=== PATIENT | male | born 1940 | race Caucasian/White ===

== ENCOUNTER → 2018-12-16 11:20 | Outpatient (CLI) | payer MEDICARE, OTHER, SELFPAY ==
--- NOTE | 2018-12-16 | DI.MRI.S_ITS ---
PROCEDURE: MR LUMBAR SPINE WO CON INDICATIONS: Radiculopathy, lumbar region TECHNIQUE: Noncontrast sagittal T1 spin echo and T2 fast echo, sagittal STIR, axial T1 and T2 fast spin echo through the lumbar spine. In cases with scoliosis, additional coronal T2 fast spin echo may be performed. COMPARISON: None. FINDINGS: Image quality: Excellent. Alignment and Curvature: There is normal bony alignment. Bone Marrow: Reactive endplate change is noted adjacent to the L2-L3, L3-L4, L4-L5 at L5-S1 discs. No acute vertebral body compression fractures. Spinal Cord: Conus medullaris terminates at the T12-L1 disc level. Visualized cord demonstrates normal signal and size. Paraspinous Soft Tissues: No paravertebral masses. L1-L2: Loss of disc signal. Mild, diffuse disc bulge. Mild bilateral facet hypertrophy. No central stenosis. No neural foraminal narrowing. No neural compression. L2-L3: Loss of disc signal. Mild to moderate diffuse disc bulge. Mild facet and mild ligamentum flavum hypertrophy. Mild narrowing of the central canal. Mild bilateral neural foraminal narrowing. No neural compression. L3-L4: Loss of disc signal. Mild, diffuse disc bulge. Mild bilateral facet hypertrophy. Mild ligamentum flavum hypertrophy. Mild narrowing of the central canal. Mild bilateral neural foraminal narrowing. No neural compression. L4-L5: Loss of disc signal. Mild, diffuse disc bulge. Severe facet and ligamentum flavum hypertrophy. Severe narrowing of the central canal with slight compression of the nerve roots of the cauda equina. Moderate bilateral neural foraminal narrowing. L5-S1: Near complete loss of disc substance with partial ankylosis. Posterior osteophytosis. Mild bilateral facet hypertrophy. No central stenosis severe left subarticular neural foraminal narrowing with compression of the exiting left L5 nerve root. IMPRESSION: 1. Multilevel degenerative disc disease 2. Multilevel facet arthropathy. 3. Severe L4-L5 central canal narrowing. 4. Severe left L5-S1 and subarticular neural foraminal narrowing. Moderate bilateral L4-L5 neural foraminal narrowing. Mild bilateral L2-L3 and L3-L4 neural foraminal narrowing. 6. Slight compression of the nerve roots of the cauda equina at the level of the L4-L5 disc secondary to central canal narrowing. 6. Compression of the exiting left L5 nerve root secondary to neural foraminal narrowing. Dictated by: Aniya Singh MD, PhD on 12/16/2018 at 16:33 Approved by: Aniya Singh MD, PhD on 12/16/2018 at 16:42
== END ==
PROVIDERS: Family Provider Family Medicine; PCP Family Medicine; Visit Provider Family Medicine
DX: M51.16 Intervertebral disc disorders with radiculopathy, lumbar region (principal); M47.26 Other spondylosis with radiculopathy, lumbar region; M48.061 Spinal stenosis, lumbar region without neurogenic claudication
CPT/HCPCS: 72148

== ENCOUNTER 2019-04-14 08:35 | Day surgery (SDC) | payer MEDICARE, OTHER, SELFPAY ==
[2019-04-14] VITALS (9 sets, daily range): BP systolic 116–146; BP diastolic 63–76; PULSE 51–64; RESP 12–16; TEMP 36.1–36.7; O2SAT 93–97; BMI 27.1
--- NOTE | 2019-04-14 | PATH_ITS ---
[facility] Accession Number: [id number] . 01 Material submitted: . bladder - LEFT BLADDER WALL BIOPSY . 02 Diagnosis: Left Bladder Wall Biopsy: Atypical urothelial tissue; outside consultation pending ([facility]). Their interpretation will be reported as an addendum. [facility] 04/17/2019 1547 Local . 02 Electronically signed: . Marva Truong MD, Pathologist NPI- [id number] . 01 Gross description: . LEFT BLADDER WALL BIOPSY: Received in formalin are 3 fragment(s) of wagner, soft tissue measuring 0.1 x 0.1 x 0.1 cm to 0.3 x 0.2 x 0.2 cm submitted entirely in 1 cassette(s) /[facility] 04/14/20192043 Local . 02 Pathologist provided ICD-10: C67.9 . 02 CPT . 148367 Performed at: 01 [facility] [address] [facility], [place], [place] [id number] MD Sammy Mayers MD Phone: [phone] Performed at: 02 [facility] [address] [place], [place] [id number] MD Sinai Hurt MD Phone: [phone]
[2019-04-14] MEDS: ACETAMINOPHEN 325 MG TABLET 975 MG PO (09:07)
[2019-04-14] MEDS: LACTATED RINGERS 1,000 ML 42 ML IV (09:07)
--- NOTE | 2019-04-14 09:16 | PM.PREOP ---
Pre-operative Note Interval Note History & Physical reviewed/Exam performed by Physician: Yes Changes to H&P: No H&P completed within 30 days and has changed as indicated here:: History and physical examination on file.
[2019-04-14] MEDS: CEFAZOLIN 2 GM/100 ML FROZ.PIGGY IV (09:29)
--- NOTE | 2019-04-14 09:46 | SUR.OPER ---
Lithotomy on padded OR bed, head on pillow, arms secured on padded arm boards at <90 degrees abduction. Legs secured in padded yellow fins stirrups.
[2019-04-14] MEDS: BELLADONNA/OPIUM SUPPOSITORIES 1 EACH PR (09:49)
[2019-04-14] MEDS: mitoMYcin 20 MG in WATER FOR INJECTION 20 ML 240 ML INTRAVESIC (10:02)
--- NOTE | 2019-04-14 10:16 | PM.OP.1 ---
Operative Date/Time/Diagnoses Date of procedure: 04/14/19 Time of procedure: 10:17 Pre-op diagnosis: 1. Recurrent urothelial carcinoma left bladder wall. Post-op diagnosis: same Procedure & Clinicians Procedure: 1. Cystoscopy with bladder biopsy. 2. Transurethral resection of recurrent bladder tumor. 3. Installation mitomycin C (20 mg). Same procedure as scheduled: Yes Indications: 1. Recurrent urothelial carcinoma left bladder wall. Surgeon: Katherine Prieto Click Yes if Unassisted: Yes Anesthesia Type: General Operative Notes Findings: 1. Urethra normal. External sphincter coapted. Prostate 5 cm length with obstructing trilobar hyperplasia. Bladder had well-versed healed resection bed at right lateral wall. There was spreading papillary recurrence carcinoma extending from the left mid ureteric ridge extending laterally and superiorly and anteriorly to a point near the bladder neck. Closure Type: not applicable Specimen(s): other (Cold cup bladder biopsies left bladder wall.) Applied: catheter (Twenty Surinamese silicone Barnhart catheter) Estimated Blood Loss (mL): 0 Blood products transfused: none Tourniquet time (min): 0 Procedure in detail: The patient was positioned in supine and was administered general anesthesia. He was then repositioned in semi lithotomy and the lower abdomen genitalia and groin were prepped and draped in sterile fashion. The 25 Surinamese resectoscope was then advanced to the lower urinary tract under direct visualization with the findings as described above. The resectoscope was then fitted with the biopsy element and 3 national account representative samples were taken from the above-described left lateral wall spreading neoplasm. The biopsy element was then removed and was replaced with the resecting loop. Superficial cautery resection destruction of all visible recurrence neoplasm was conducted the biopsy sites were cautery treated for hemostasis. The bladder was left partially filled and the resectoscope was removed a 20 Surinamese silicone Barnhart catheter was then inserted the balloon was inflated to 10 cc and was then drained of its contents. A solution of 20 mg of mitomycin-C suspended in 20 cc of sterile water were then instilled in the bladder a catheter plug was fitted to the Barnhart for anticipated to our postoperative retention. The patient was then repositioned in supine was awakened, transferred to [facility], and transferred to the recovery area in stable condition. Complications: none Post-operative Condition: stable Disposition: PACU Plan for aftercare: 1. Retained mitomycin-C solution until [address]. [address] Barnhart catheter to gravity drainage at 12:00 p.m.. 3. Provide larger and leg bag with care and use instruction. 4. Instructed the patient and proper catheter removal at 7:00 a.m. on 04/17/2019. 5. Schedule follow-up visit in my office 3-4 weeks with PVR.
--- NOTE | 2019-04-14 12:28 | SUR.PHASEII ---
1200 late entry Catheter connected to straight drainage bag, drained chemo and urine to 400 ml line in the bag, urine dark red without clots. Encouraged him to drink to get urine to watermelon colored. Coffee given. Leg bag/jameson demo given. 1229 in the ER (passed out last night). Patient escorted to ER in a wheelchair by the volunteer. Pt very kind, oriented, skin warm and dry, denies pain, no further questions
== END 2019-04-14 12:29 | disposition home or self-care (01) ==
PROVIDERS: PCP Family Medicine; Visit Provider Specialist
PROC: 0TBB8ZZ Excision of Bladder, Via Natural or Artificial Opening Endoscopic (ICD-10-PCS; CPT 52235; principal; 2019-04-14 09:45)
DX: C67.9 Malignant neoplasm of bladder, unspecified (principal)
CPT/HCPCS: 52235; J0690; J1100; J2405; J2704; J3010; J9280

== ENCOUNTER → 2019-10-31 13:16 | Outpatient (CLI) | payer MEDICARE, OTHER, SELFPAY | PROVIDERS: PCP Family Medicine; Visit Provider Specialist | DX: N39.0 Urinary tract infection, site not specified (principal); N40.1 Benign prostatic hyperplasia with lower urinary tract symptoms; N13.8 Other obstructive and reflux uropathy; Z85.51 Personal history of malignant neoplasm of bladder | CPT/HCPCS: 52000; 81002; 87086; 99213 ==

== ENCOUNTER → 2020-08-21 14:11 | Outpatient (CLI) | payer MEDICARE, OTHER, SELFPAY ==
[2020-08-21 15:43] LABS: Prostate Specific Antigen 0.413 ng/mL (0.10-4.00)
== END ==
PROVIDERS: PCP Family Medicine; Referring Provider Specialist; Visit Provider Specialist
DX: N40.1 Benign prostatic hyperplasia with lower urinary tract symptoms (principal); N13.8 Other obstructive and reflux uropathy; Z85.51 Personal history of malignant neoplasm of bladder
CPT/HCPCS: 36415; 84153

== ENCOUNTER → 2020-11-07 12:33 | Outpatient (CLI) | payer MEDICARE, OTHER, SELFPAY ==
--- NOTE | 2020-11-07 12:34 | DI.MRI.S_ITS ---
PROCEDURE: MR HEAD/BRAIN WO CON INDICATIONS: chronic ELDRIDGE TECHNIQUE: Non-contrast axial T1 spin echo, axial T2 fast spin echo, sagittal and axial FLAIR, coronal T2 fast spin echo, axial gradient echo, axial diffusion and ADC through the brain. COMPARISON: None. FINDINGS: Image quality: Excellent. CSF spaces: Ventricles appear symmetric in size and shape. Basal cisterns are patent. No extra-axial fluid collections. Brain: No intracranial bleeds or mass effects. There is mild cerebral volume loss for age. There are mild periventricular and deep white matter chronic small vessel ischemic changes. Brainstem appears normal. Diffusion-weighted images show no acute ischemic insults. No chronic ischemic insults. Normal intravascular flow voids are present. Skull and face: Calvarial bone marrow is normal in signal. Orbits are normal. Sinuses: Sinuses and mastoids are clear. IMPRESSION: 1. Absence of flow void in the right transverse sinus which could be due to artifact, slow flow or thrombosis. Recommend MRI of the brain with contrast and MRV for further evaluation. 2. Mild, relatively smooth diffuse dural thickening. Recommend MRI of the brain with contrast for additional evaluation of the finding. Differential diagnosis is broad and includes cerebral venous thrombosis, hypertropic pachymeningitis infectious etiologies including bacterial meningitis, inflammatory etiology including IgG 4 related hypertrophic pachymeningitis and rheumatoid disease as well as changes of chronic hemodialysis 3. No abnormal intracranial mass or mass effect. 4. No intracranial hemorrhage. 5. Mild, diffuse cerebral volume loss. 6. Mild periventricular and subcortical white matter chronic microvascular ischemic change. Findings and recommendations discussed with Dr. Salbador Ballard on November 07, 2020 at 2:21 p.m. Dictated by: Aniya Singh MD, PhD on 11/07/2020 at 13:54 Approved by: Aniya Singh MD, PhD on 11/07/2020 at 14:32
--- NOTE | 2020-11-07 12:34 | DI.US.S_ITS ---
PROCEDURE: US CAROTID DOPPLER BI INDICATIONS: OCCULAR CHANGES TECHNIQUE: Color and pulse Doppler interrogation was performed of both carotid systems, with image documentation and velocity measurements. COMPARISON: [facility], MR, MR HEAD/BRAIN WO CON, 11/07/2020, 13:09. [facility], MR, MR ANGIO HEAD WO CON, 11/07/2020, 15:25. [facility], MR, MR HEAD/BRAIN W CON, 11/07/2020, 15:38. Outside Facility, RG, US CAROTID DOPPLER, 04/28/2017, 9:46. FINDINGS: Stenosis calculations are based on SRU (Society of Radiologists in Ultrasound) criteria. The flow velocities and the arterial waveforms are normal within both carotid arterial systems. Atherosclerotic plaque is seen on both sides, left worse than right. The estimated degree of internal carotid artery stenosis is less than 50%. Antegrade flow is confirmed within both vertebral arteries. IMPRESSION: No hemodynamically significant stenosis is seen. No significant change from the prior. Atherosclerotic plaque is noted bilaterally, left worse than right. Dictated by: Jesse Hawkins M.D. on 11/11/2020 at 15:43 Approved by: Jesse Hawkins M.D. on 11/11/2020 at 15:43
--- NOTE | 2020-11-07 14:46 | DI.MRI.S_ITS ---
PROCEDURE: MR ANGIO HEAD WO CON INDICATIONS: Concerns regarding cerebral venous thrombosis TECHNIQUE: Sagittal T1 spin echo through the brain. Coronal 2D ytty-tj-dnyixu MR venogram, with 3-dimensional jyyohgl-jqukjrozg-abprglxefi (MIP) reformats of the intracranial veins then performed. COMPARISON: None. FINDINGS: Image quality: Excellent. Veins: Sagittal, straight, transverse, and sigmoid sinuses all appear patent. 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 Brain: Limited images through the brain parenchyma show no intracranial bleeds or mass effects. IMPRESSION: No evidence of cerebral venous thrombosis. Dictated by: Aniya Singh MD, PhD on 11/07/2020 at 15:57 Approved by: Aniya Singh MD, PhD on 11/07/2020 at 16:01
--- NOTE | 2020-11-07 14:46 | DI.MRI.S_ITS ---
PROCEDURE: MR HEAD/BRAIN W CON INDICATIONS: Concern regarding cerebral venous thrombosis TECHNIQUE: Noncontrast sagittal and axial FLAIR, axial and coronal T2 fast spin echo, axial VIBE, axial gradient echo, axial diffusion and ADC through the brain. After the administration of contrast, axial and coronal VIBE with fat saturation through the brain. COMPARISON: [facility], MR, MR HEAD/BRAIN WO CON, 11/07/2020, 13:09. [facility], MR, MR ANGIO HEAD WO CON, 11/07/2020, 15:25. FINDINGS: Image quality: Excellent. CSF spaces: Ventricles are normal in size and shape. Basal cisterns are patent. No extra-axial fluid collections. Brain: No intracranial bleeds or mass effects. Zarate-white matter interface appears intact. No suspicious white matter lesions. There is diffuse dural thickening with mild, smooth dural enhancement. Diffusion weighted images show no acute ischemic insults. Brainstem appears normal. Normal intravascular flow voids are present. Dural sinuses demonstrate normal postcontrast enhancement. Skull and face: Calvarial marrow signal is normal. Orbits appear normal. Sinuses: Sinuses and mastoids are clear. IMPRESSION: 1. Mild, diffuse, smooth dural thickening and enhancement. Differential diagnosis includes idiopathic hypertrophic pachymeningitis, versus less likely infectious etiologies, inflammatory etiologies. 2. No abnormal intracranial mass. Area 3. Normal postcontrast enhancement of the dural sinuses. Dictated by: Aniya Singh MD, PhD on 11/07/2020 at 15:51 Approved by: Aniya Singh MD, PhD on 11/07/2020 at 15:57
== END ==
PROVIDERS: PCP Family Medicine; Referring Provider Family Medicine; Visit Provider Family Medicine
DX: R51.9 Headache, unspecified (principal); H53.8 Other visual disturbances; H91.93 Unspecified hearing loss, bilateral; G89.29 Other chronic pain; Z86.69 Personal history of other diseases of the nervous system and sense organs
CPT/HCPCS: 70544; 70551; 70552; 93880

== ENCOUNTER → 2020-12-09 09:03 | Outpatient (CLI) | payer MEDICARE, OTHER, SELFPAY ==
[2020-12-09 21:57] LABS: COVID19 - ORCAS (NP or Nasal) Negative (Negative)
== END ==
PROVIDERS: PCP Family Medicine; Visit Provider Family Medicine
DX: Z20.822 Contact with and (suspected) exposure to COVID-19 (principal)
CPT/HCPCS: C9803; U0003

== ENCOUNTER → 2020-12-17 13:06 | Outpatient (CLI) | payer MEDICARE, OTHER, SELFPAY ==
[2020-12-17 19:40] LABS: C-Reactive Protein Quant 0.6 mg/dL (<1.0)
[2020-12-17 19:45] LABS: Erythrocyte Sedimentation Rate 3 MM/HR (0-15)
[2020-12-17 19:46] LABS: Rheumatoid Factor < 8.6 IU/mL (<12.0)
[2020-12-19 22:00] LABS: SS A Ro Sjogrens Antibody < 0.2 AI (0.0-0.9); SS B La Sjogrens Antibody < 0.2 AI (0.0-0.9)
[2020-12-20 09:42] LABS: Angiotensin Converting Enzyme 34 U/L (14-82)
== END ==
PROVIDERS: PCP Family Medicine; Visit Provider Psychiatry & Neurology Neurology
DX: G96.9 Disorder of central nervous system, unspecified (principal); R51.0 Headache with orthostatic component, not elsewhere classified
CPT/HCPCS: 82164; 83516; 85651; 86140; 86225; 86235; 86430

== ENCOUNTER → 2020-12-23 07:56 | Outpatient (CLI) | payer MEDICARE, OTHER, SELFPAY ==
[2020-12-23 20:57] LABS: COVID19 - ORCAS (NP or Nasal) Negative (Negative)
== END ==
PROVIDERS: PCP Family Medicine; Visit Provider Family Medicine
DX: Z20.822 Contact with and (suspected) exposure to COVID-19 (principal)
CPT/HCPCS: U0003

== ENCOUNTER → 2021-05-28 09:13 | Outpatient (CLI) | payer MEDICARE, OTHER, SELFPAY ==
[2021-05-28 18:51] LABS: Alanine Aminotransferase 33 IU/L (<50); Albumin 3.9 g/dL (3.5-5.0); Albumin Globulin Ratio 1.5 (1.0-2.8); Alkaline Phosphatase 58 U/L (38-126); Aspartate Aminotransferase 36 IU/L (17-59); BUN Creatinine Ratio 16.3 (6-22); Bilirubin Total 0.8 mg/dL (0.2-1.3); Blood Urea Nitrogen 17 mg/dL (9-20); Calcium 8.9 mg/dL (8.4-10.2); Carbon Dioxide 30 mmol/L (22-32); Chloride 105 mmol/L (98-107); Cholesterol 132 mg/dL (140-199); Estimated Glomerular Filt Rate > 60.0 mL/min (>60); Globulin 2.6 g/dL (1.7-4.1); Glucose 115 mg/dL (80-110); HDL Cholesterol 49 mg/dL (40-60); HEMOLYSIS < 15 (0-50); LDL Cholesterol Calculated 66 mg/dL (<100); Potassium 4.3 mmol/L (3.4-5.1); Sodium 139 mmol/L (137-145); Total Protein 6.5 g/dL (6.3-8.2); Triglycerides 85 mg/dL (35-150)
== END ==
PROVIDERS: PCP Family Medicine; Visit Provider Family Medicine
DX: E78.2 Mixed hyperlipidemia (principal); I10 Essential (primary) hypertension
CPT/HCPCS: 80053; 80061

== ENCOUNTER → 2022-02-27 11:07 | Outpatient (CLI) | payer MEDICARE, OTHER, SELFPAY ==
[2022-02-27 19:57] LABS: Add Manual Diff / Slide Review NO; Basophils Absolute Auto 100 /uL (0-100); Basophils Percent Auto 0.9 % (0-2); Eosinophils Absolute Auto 400 /uL (0-450); Eosinophils Percent Auto 6.7 % (2-4); Hematocrit 47.2 % (41-53); Hemoglobin 16.1 g/dL (13.5-17.5); Lymphocytes Absolute Auto 1400 /uL (1100-4500); Lymphocytes Percent Auto 23.4 % (25-40); Mean Corpuscular HGB Conc 34.1 % (30-36); Mean Corpuscular Volume 90.9 fL (80-100); Monocytes Absolute Auto 500 /uL (0-900); Monocytes Percent Auto 8.1 % (3-14); Neutrophils Absolute Auto 3600 /uL (1500-7000); Neutrophils Percent Auto 60.9 % (50-75); Platelet Count 152 X10^3/uL (150-400); Red Cell Distribution Width 13.5 % (11.6-14.8); White Blood Cell Count 5.9 X10^3/uL (4.5-11.0)
[2022-02-27 20:01] LABS: BUN Creatinine Ratio 15.4 (6-22); Blood Urea Nitrogen 14 mg/dL (9-20); Carbon Dioxide 29 mmol/L (22-32); Chloride 104 mmol/L (98-107); Cholesterol 158 mg/dL (140-199); Estimated Glomerular Filt Rate > 60 mL/min (>60); Glucose 104 mg/dL (80-110); HDL Cholesterol 51 mg/dL (40-60); HEMOLYSIS < 15 (0-50); LDL Cholesterol Calculated 88 mg/dL (<100); Potassium 4.2 mmol/L (3.4-5.1); Sodium 141 mmol/L (137-145); Triglycerides 94 mg/dL (35-150)
[2022-02-27 20:16] LABS: Vitamin D 25 Hydroxy (D3) 41.5 ng/mL (30.0-100.0)
[2022-02-27 20:29] LABS: Prostate Specific Antigen 0.457 ng/mL (0.10-4.00)
== END ==
PROVIDERS: PCP Family Medicine; Visit Provider Family Medicine
DX: I10 Essential (primary) hypertension (principal); N40.1 Benign prostatic hyperplasia with lower urinary tract symptoms; E55.9 Vitamin D deficiency, unspecified; D75.1 Secondary polycythemia; E78.2 Mixed hyperlipidemia; N13.8 Other obstructive and reflux uropathy; Z85.51 Personal history of malignant neoplasm of bladder
CPT/HCPCS: 80048; 80061; 82306; 84153; 85025

== ENCOUNTER → 2022-03-17 08:00 | Outpatient (CLI) | payer MEDICARE, OTHER, SELFPAY ==
[2022-03-17 20:58] LABS: COVID19 - ORCAS (NP or Nasal) Negative (Negative)
== END ==
PROVIDERS: PCP Family Medicine; Visit Provider Family Medicine
DX: Z20.822 Contact with and (suspected) exposure to COVID-19 (principal); Z01.812 Encounter for preprocedural laboratory examination
CPT/HCPCS: C9803; U0003

== ENCOUNTER 2022-03-20 09:57 | Day surgery (SDC) | payer MEDICARE, OTHER, SELFPAY ==
[2022-03-13 14:05] VITALS: BMI 25.7
[2022-03-20] VITALS (8 sets, daily range): BP systolic 105–134; BP diastolic 67–77; PULSE 58–74; RESP 11–16; TEMP 36.1–36.9; O2SAT 95–944; BMI 25.7
--- NOTE | 2022-03-20 | PATH_ITS ---
[facility] Accession Number: [id number] . 01 Material submitted: . bladder - LEFT LATERAL BLADDER WALL . 01 Diagnosis: Urinary Bladder, Left Lateral Wall, Biopsy: Minimal chronic inflammation and vascular congestion with associated reactive urothelial changes. Negative for dysplasia, neoplasia, and malignancy. [facility] 03/24/2022 1800 Local . 01 Electronically signed: . Saira Anton MD, Pathologist NPI- [id number] . 01 Gross description: . LEFT LATERAL BLADDER WALL: Received in formalin are 2 fragment(s) of wagner, soft tissue measuring 0.2 x 0.2 x 0.1 cm to 0.2 x 0.2 x 0.1 cm submitted entirely in 1 cassette(s) /[facility] 03/21/2022 0903 Local . 01 Pathologist provided ICD-10: Z85.51 . 01 CPT . 085092 Specimen Comment: A courtesy copy of this report has been sent to [phone] Performed at: 01 [facility] [address] [place] [address], [place], [place] [id number] MD Sammy Mayers MD Phone: [phone]
[2022-03-20] MEDS: LACTATED RINGERS 1,000 ML 21 ML IV (10:40)
--- NOTE | 2022-03-20 10:43 | PM.PREOP ---
Pre-operative Note COVID-19 Criteria for continued procedure: Expected advancement of disease process, Possibility delay results in more complex future surgery or treatment, Deterioration of the patient's condition or overall health, Delay expected to result in less-positive ultimate med/surg outcome and Non-surgical alternatives not available or appropriate per current SOC Interval Note History & Physical reviewed/Exam performed by Physician: Yes Changes to H&P: No
--- NOTE | 2022-03-20 10:45 | PM.HP.1 ---
History of Present Illness History of Present Illness Date Patient Seen: 03/20/22 Time Patient Seen: 10:45 Chief complaint: Cystoscopy w/ Instillation Narrative: Adonay is an 81-year-old gentleman with a history of recurrent urothelial carcinoma the bladder. First diagnosis was made about 25 years ago for reported low-grade superficial urothelial cell carcinoma at the left lateral bladder wall. More recently, 04/14/2019 a recurrence was identified at the right lateral wall and underwent TURBT at that time. Finding was that of a G1/3, repeat chief neoplasm. BTS cystoscopy on 02/12/2022, identified a newly appreciated area of erythema and elevation of the urothelium in the left lateral bladder wall. He now presents for scheduled bladder biopsy/TURBT and installation mitomycin-C. Patient History Medical History Arthritis Asthma BCC (basal cell carcinoma) Bladder cancer BPH (benign prostatic hyperplasia) BPH w urinary obs/LUTS Chicken pox Enlarged prostate Fractures History of primary bladder cancer (~2000) Hyperlipidemia Hypertension Idiopathic hypertrophic pachymeningitis Measles Migraine headache Mumps SCC (squamous cell carcinoma) Shoulder pain Spinal stenosis TIA (transient ischemic attack) Surgical History Anesthesia History of back surgery History of bladder surgery (~2019) History of liver biopsy History of transurethral resection of bladder tumor (TURBT) (04/14/19) Family & Social History Family History Father History of heart disease Mother History of heart disease Brother Stroke Grandfather History of heart disease Grandmother History of heart disease Grandfather Liver disease Grandmother Liver disease Family/Other No problems noted. Social History: household members spouse Tobacco & Substance use: Smoking Status Former smoker alcohol intake current alcohol intake frequency a few times a month Substance Use Type does not use Meds Home Medications and Allergies Home Medications Medication Instructions Recorded Confirmed Type albuterol sulfate 90 mcg/actuation 1 puff INH SEE INSTRUCTIONS #1 inh 08/03/16 03/13/22 Rx aerosol inhaler (Proventil HFA) fluticasone propionate 110 1 puff INH BID #1 inh 10/27/16 03/13/22 Rx mcg/actuation HFA aerosol inhaler (Flovent HFA) atorvastatin 10 mg tablet 10 mg PO BEDTIME #90 tabs 05/17/21 03/20/22 Rx zolpidem 5 mg tablet 5 mg PO BEDTIME PRN insomnia #30 06/09/21 03/20/22 Rx tabs memantine 5 mg tablet 5 mg PO QPM 07/29/21 03/20/22 History finasteride 5 mg tablet 5 mg PO QDAY #90 tabs 10/20/21 03/20/22 Rx amlodipine 5 mg tablet 5 mg PO DAILY #90 tabs 11/18/21 03/20/22 Rx gabapentin 300 mg capsule See Rx Instructions .Route 02/25/22 03/20/22 Rx .COMPLEX #180 caps Allergies Allergy/AdvReac Type Severity Reaction Status Date / Time Horse/Equine Containing Allergy Severe ANAPHYLAXSI Verified 03/20/22 10:23 Products S [HORSE/EQUINE CONTAINING PRODUCTS] iodine [IODINE] Allergy Severe ANAPHYLAXSIS..TOPICAL Verified 03/20/22 10:23 IODINE IS OK shellfish derived Allergy Severe Redness of Verified 03/20/22 10:23 Skin Tetracyclines [TETRACYCLINES] Allergy Severe ANAPHYLAXSI Verified 03/20/22 10:23 S Review of Systems Review of Systems ROS: Yes All systems reviewed with the patient and are negative except as otherwise documented Exam Vital Signs (past 8 hours): - 03/20/22 10:26 Temperature 97.9 F Pulse Rate 58 L Respiratory Rate 16 Blood Pressure 134/73 Pulse Oximetry 97 Oxygen Delivery Method Room Air Oxygen Delivery Method Room Air Narrative Exam Narrative: He is a well-developed, thin elderly fellow in no acute distress. Head/neck-sclera clear pupils are equal round bilaterally. No evidence of adenopathy or JVD. Chest-equal unlabored expansion bilaterally. Heart-normal sinus rhythm. Assessment & Plan Assessment & Plan narrative: Assessment: 1. History of recurrent urothelial carcinoma the bladder. 2. Suspicious neoplasm left lateral bladder wall. Plan: 1. Proceed as discussed and informed consent for CYSTOSCOPY/BLADDER BIOPSY/HISTORY IS RESECTION OF BLADDER TUMOR/INSTALLATION MITOMYCIN-C (20 mg). Time Spent With Patient Critical Care time: I spent a total of [] minutes of critical care time on this patient's care today; this time is exclusive of procedural time.
[2022-03-20] MEDS: CEFAZOLIN 2 GM/100 ML PREMIX 100 ML IV (11:11)
--- NOTE | 2022-03-20 11:14 | SUR.OPER ---
Lithotomy on padded OR bed, head on pillow, arms secured on padded arm boards at <90 degrees abduction. Legs secured in padded yellow fins stirrups.
[2022-03-20] MEDS: WATER FOR INJECTION,STERILE 20 ML, mitoMYcin 20 MG INTRAVESIC (11:43)
--- NOTE | 2022-03-20 11:52 | P.OP_ITS ---
Operative Date/Time/Diagnoses Date of procedure: 03/20/22 Time of procedure: 11:45 Pre-op diagnosis: 1. History of recurrent urothelial carcinoma the bladder. Post-op diagnosis: same Procedure & Clinicians Procedure: 1. Cystoscopy/bladder biopsy. 2. Cystoscopy/fulguration. 3. Cystoscopy/installation mitomycin-C (20 cc). Same procedure as scheduled: Yes Indications: 1. History of recurrent urothelial carcinoma the bladder. 2. Suspicious area of red and raised urothelium at left lateral bladder wall. Surgeon: Katherine Prieto Click Yes if Unassisted: Yes Anesthesia Type: General Operative Notes Findings: 1. Urethra-no lesions. There was a 20 Venezuelan annular stricture at the proximal penile segment. The resectoscope gently dilated the site for successful proximal advancement of the scope. 2. External sphincter-coapted with normal overlying urothelium. 3. Prostate-5+ cm length with moderate obstructing trilobar hyperplasia. The median bar is elevated with modest intravesical protrusion of median lobe. 4. Bladder-1+ trabeculation. Normal ureteral orifices bilaterally. Well-healed previous resection beds of both the left and right lateral wall. Slightly inferior and posterior to the previous left bladder wall resection site there are 2 areas that are red and raised with irregular borders. Each were biopsy resected with the cold cup. Closure Type: not applicable Specimen(s): other (Left lateral bladder wall biopsies.) Applied: catheter (To a 18 Venezuelan Barnhart catheter placed for installation and retention of mitomycin C.) Estimated Blood Loss (mL): 0 Blood products transfused: none Procedure in detail: Patient was positioned supine and was administered general anesthesia. He was then repositioned in semi-lithotomy and the lower abdomen, genitalia, and groin were then prepped and draped in sterile fashion. The resectoscope was then advanced into lower urinary track under direct visualization with the findings as described above. The rigid biopsy forceps were then fitted to the working element and the above-described sites were sampled and submitted to pathology for routine gross and microscopic examination. The rigid cold cup biopsy forceps was then exchanged for a button electrode. The biopsy sites and perimeter were cauterized extensively for peripheral tissue destruction and hemostasis. The bladder was then left partially filled and the resectoscope was removed. An 18 Venezuelan Barnhart catheter was then inserted into the lower urinary track in the balloon was inflated 10 cc. The bladder contents were drained completely next, a 20 cc solution containing 20 mg of mitomycin-C were instilled into the bladder via the Barnhart catheter and a catheter plug was left in place for anticipated 2 hour postoperative retention of mitomycin. The patient was then repositioned supine, was awakened, then was transferred to a [place] awakened stable condition to the PACU. Complications: none Post-operative Condition: stable Disposition: PACU Plan for aftercare: Discharge home.
--- NOTE | 2022-03-20 14:42 | SUR.PHASEII ---
Jameson unclamped and attached to a jameson bag, bladder drained. Jameson was then removed without difficulty. Patient requested to urinate and was able to void a small amount of light red fluid.
== END 2022-03-20 14:12 | disposition home or self-care (01) ==
PROVIDERS: PCP Family Medicine; Referring Provider Specialist; Visit Provider Specialist
PROC: 3E1K78Z Irrigation of Genitourinary Tract using Irrigating Substance, Via Natural or Artificial Opening (ICD-10-PCS; CPT 51700; principal; 2022-03-20 11:15)
DX: N30.80 Other cystitis without hematuria (principal); Z85.51 Personal history of malignant neoplasm of bladder
CPT/HCPCS: 52234; 52204; 82962; J0690; J2405; J2704; J3010; J9280

== ENCOUNTER → 2022-04-08 11:39 | Outpatient (CLI) | payer MEDICARE, OTHER, SELFPAY ==
[2022-04-08 19:17] LABS: Bilirubin Urine UA NEGATIVE (NEGATIVE); Color Urine UA YELLOW; Glucose Urine UA NEGATIVE (Negative); Ketones Urine UA NEGATIVE (NEGATIVE); Leukocyte Esterase Urine UA TRACE (NEGATIVE); Nitrite Urine UA NEGATIVE (Negative); Occult Blood Urine UA 3+ (Negative); Protein Urine UA TRACE (Negative); Specific Gravity Urine UA 1.025 (1.000-1.035); Urobilinogen Urine UA 0.2 E.U./dL (0.2)
[2022-04-08 19:28] LABS: Appearance Urine UA Slightly Cloudy
[2022-04-08 19:33] LABS: Amorphous Sediment Urine 1+; Bacteria Urine Few (2-10); Culture Indicated Urine Specimen Cultured; Mucus Urine 1+ (Negative); RBC Urine 30-100/HPF (0-5/HPF); Squamous Epithelial Cell Urine 1-5 /HPF (0-5/HPF); WBC Urine 5-10/HPF (0-5/HPF)
== END ==
PROVIDERS: PCP Family Medicine; Visit Provider Specialist
DX: R30.9 Painful micturition, unspecified (principal)
CPT/HCPCS: 81001; 87086

== ENCOUNTER 2022-06-18 11:04 | Day surgery (SDC) | payer MEDICARE, OTHER, SELFPAY ==
--- NOTE | 2022-06-18 | PATH_ITS ---
[facility] Accession Number: [id number] No. of containers..01 Tissue . 01 Material submitted: . cecum - CECAL POLYP . 01 Diagnosis: Cecal Polyp: Small serrated lesion, consistent with early sessile serrated adenoma. MRV 06/23/2022 1227 Local . 01 Electronically signed: . Donta Vieira MD, PhD, Pathologist NPI- [id number] . 01 Gross description: . CECAL POLYP: Received in formalin is 1 fragment(s) of wagner, soft tissue measuring 0.5 x 0.2 x 0.1 cm submitted entirely in 1 cassette(s) /RACHAEL 06/19/2022 2357 Local . 01 Pathologist provided ICD-10: D12.0 . 01 CPT . 828637 Specimen Comment: A courtesy copy of this report has been sent to [phone] Performed at: 01 [facility] [address] [place] [address], [place], [place] [id number] MD Sammy Mayers MD Phone: [phone]
[2022-06-18 11:27] VITALS: BMI 25.7
[2022-06-18 11:39] VITALS: BP 132/72; PULSE 63; RESP 17; TEMP 36.4; O2SAT 98
[2022-06-18] MEDS: LACTATED RINGERS 1,000 ML 42 ML IV (11:47)
--- NOTE | 2022-06-18 12:10 | P.HP_ITS ---
History of Present Illness History of Present Illness Date Patient Seen: 06/18/22 Time Patient Seen: 12:17 Chief complaint: Colonoscopy Narrative: colon cancer screening, h/o polyps, last scope at 2015. Has left sided abdominal pain. FORMERLY [facility], 1928–1983 Medical History Arthritis Asthma BCC (basal cell carcinoma) Bladder cancer BPH (benign prostatic hyperplasia) BPH w urinary obs/LUTS Chicken pox Enlarged prostate Fractures History of primary bladder cancer (~2000) Hyperlipidemia Hypertension Idiopathic hypertrophic pachymeningitis Measles Migraine headache Mumps SCC (squamous cell carcinoma) Shoulder pain Spinal stenosis TIA (transient ischemic attack) Surgical History Anesthesia History of back surgery History of bladder surgery (~2019) History of liver biopsy History of transurethral resection of bladder tumor (TURBT) (04/14/19) Family History Father History of heart disease Mother History of heart disease Brother Stroke Grandfather History of heart disease Grandmother History of heart disease Grandfather Liver disease Grandmother Liver disease Family/Other No problems noted. Social History household members: spouse Smoking Status: Former smoker alcohol intake: current Meds Home Medications and Allergies Home Medications Medication Instructions Recorded Confirmed Type albuterol sulfate 90 mcg/actuation 1 puff INH SEE INSTRUCTIONS #1 inh 08/03/16 06/18/22 Rx aerosol inhaler (Proventil HFA) fluticasone propionate 110 1 puff INH BID #1 inh 10/27/16 06/18/22 Rx mcg/actuation HFA aerosol inhaler (Flovent HFA) zolpidem 5 mg tablet 5 mg PO BEDTIME PRN insomnia #30 06/09/21 06/18/22 Rx tabs finasteride 5 mg tablet 5 mg PO QDAY #90 tabs 10/20/21 06/18/22 Rx amlodipine 5 mg tablet 5 mg PO DAILY #90 tabs 11/18/21 06/18/22 Rx gabapentin 300 mg capsule See Rx Instructions .Route 02/25/22 06/18/22 Rx .COMPLEX #180 caps tamsulosin 0.4 mg capsule 0.4 mg PO BEDTIME #90 caps 04/09/22 06/18/22 Rx atorvastatin 10 mg tablet 10 mg PO BEDTIME #90 tabs 05/01/22 06/18/22 Rx memantine 5 mg tablet 10 mg PO DAILY #180 tabs 06/17/22 06/18/22 Rx Allergies Allergy/AdvReac Type Severity Reaction Status Date / Time Horse/Equine Containing Allergy Severe ANAPHYLAXSI Verified 06/18/22 11:20 Products S [HORSE/EQUINE CONTAINING PRODUCTS] iodine [IODINE] Allergy Severe ANAPHYLAXSIS..TOPICAL Verified 06/18/22 11:20 IODINE IS OK shellfish derived Allergy Severe Redness of Verified 06/18/22 11:20 Skin Tetracyclines [TETRACYCLINES] Allergy Severe ANAPHYLAXSI Verified 06/18/22 11:20 S Review of Systems Review of Systems ROS: Yes All systems reviewed with the patient and are negative except as otherwise documented Exam Vital Signs (past 8 hours): - 06/18/22 11:39 Temperature 97.6 F Pulse Rate 63 Respiratory Rate 17 Blood Pressure 132/72 Pulse Oximetry 98 Oxygen Delivery Method Room Air Oxygen Delivery Method Room Air Const General: healthy appearing and comfortable Nutritional Appearance: average body habitus HENMT Head: normocephalic and atraumatic Eyes Sclera: sclerae normal Neck Neck: trachea midline Resp Effort & Inspection: normal respiratory effort and able to speak in complete sentences Cardio Rate: regular rate Rhythm: regular rhythm GI Inspection: normal to inspection Palpation: soft Skin General: turgor normal and atrophy Neuro General: patient alert, patient awake and patient oriented x3 Cognition: normal cognition Psych Mental Status: mental status grossly normal Assessment & Plan Assessment & Plan narrative: colonoscopy under MAC for h/o colon polyps. Time Spent With Patient Time with patient: less than 30 minutes
--- NOTE | 2022-06-18 12:43 | P.OP.COLON_ITS ---
Operative Date/Time/Diagnoses Date of procedure: 06/18/22 Time of procedure: 12:43 Pre-op diagnosis: H/o colon polyps Post-op diagnosis: same Procedure & Clinicians Study performed: Colonoscopy under MAC with cold forceps polypectomy Same procedure as scheduled: Yes Indications: History of colon polyps Surgeon: Saira Gan Procedure Notes Procedure in detail: Preop diagnosis: History of colon polyps Postop diagnosis: Same Operative procedure: Colonoscopy with cold forceps biopsies under MAC Surgeon: Shirley Gan MD Findings: Single 3 mm polyp sessile in the cecum taken with cold forceps. Grade 3 hemorrhoids Procedure: Patient placed in a lateral position. Rectal exam performed showing normal tone no masses. Colonoscope inserted into the rectum and advanced to ileocecal valve with minimal difficulty. Insufflation and extraction of the scope and the above findings. Retroflex was included in the rectum. Impression: Single 3 mm polyp in the cecum taken with cold forceps. In grade 3 hemorrhoids, severe diverticulosis of the descending colon Plan: Repeat colonoscopy in 5 years for surveillance purposes. Recent left- sided abdominal pain likely due to low-grade diverticulitis Findings: divertiulosis (Severe large, descending colon), internal hemorrhoids (Grade 3) and polyp(s) (3 mm in the cecum) Specimen(s): other (Cecal polyp 3 mm in size) Complications: none Post-procedure Recommendations: Colonoscopy in 5 years Follow up: as needed Disposition: PACU
[2022-06-18 12:48] VITALS: BP 105/55; PULSE 63; RESP 16; TEMP 36.2; O2SAT 98
[2022-06-18 12:51] VITALS: BP 102/57; PULSE 63; RESP 11; O2SAT 97
[2022-06-18 12:59] VITALS: BP 133/68; PULSE 64; RESP 11; O2SAT 97
[2022-06-18 13:03] VITALS: BP 129/71; PULSE 59; RESP 11; O2SAT 98
== END 2022-06-18 13:25 | disposition home or self-care (01) ==
PROVIDERS: PCP Family Medicine; Referring Provider Surgery; Visit Provider Surgery
PROC: 0DJD8ZZ Inspection of Lower Intestinal Tract, Via Natural or Artificial Opening Endoscopic (ICD-10-PCS; CPT 45378; principal; 2022-06-18 12:15)
DX: R10.9 Unspecified abdominal pain (principal); Z86.010 Personal history of colon polyps; K64.2 Third degree hemorrhoids; K57.30 Diverticulosis of large intestine without perforation or abscess without bleeding; D12.0 Benign neoplasm of cecum
CPT/HCPCS: 45380; J2704

== ENCOUNTER → 2023-01-14 12:53 | Outpatient (CLI) | payer MEDICARE, OTHER, SELFPAY ==
[2023-01-14 19:30] LABS: Alanine Aminotransferase 29 IU/L (<50); Albumin 4.1 g/dL (3.5-5.0); Albumin Globulin Ratio 1.5 (1.0-2.8); Alkaline Phosphatase 54 U/L (38-126); Aspartate Aminotransferase 34 IU/L (17-59); Bilirubin Total 0.6 mg/dL (0.2-1.3); Blood Urea Nitrogen 12 mg/dL (9-20); Calcium 9.4 mg/dL (8.4-10.2); Carbon Dioxide 28 mmol/L (22-32); Chloride 103 mmol/L (98-107); Cholesterol 144 mg/dL (140-199); Estimated Glomerular Filt Rate > 60 mL/min (>60); Globulin 2.7 g/dL (1.7-4.1); Glucose 131 mg/dL (80-110); HDL Cholesterol 52 mg/dL (40-60); HEMOLYSIS 27 (0-50); LDL Cholesterol Calculated 70 mg/dL (<100); Potassium 4.6 mmol/L (3.4-5.1); Sodium 139 mmol/L (137-145); Total Protein 6.8 g/dL (6.3-8.2); Triglycerides 111 mg/dL (35-150)
[2023-01-14 19:34] LABS: Add Manual Diff / Slide Review NO; Basophils Absolute Auto 100 /uL (0-100); Basophils Percent Auto 1.1 % (0-2); Eosinophils Absolute Auto 300 /uL (0-450); Eosinophils Percent Auto 5.6 % (2-4); Hematocrit 46.3 % (41-53); Hemoglobin 15.8 g/dL (13.5-17.5); Lymphocytes Absolute Auto 1500 /uL (1100-4500); Mean Corpuscular HGB Conc 34.1 % (30-36); Mean Corpuscular Hemoglobin 31.2 PG (26-34); Mean Corpuscular Volume 91.6 fL (80-100); Monocytes Absolute Auto 500 /uL (0-900); Monocytes Percent Auto 7.6 % (3-14); Neutrophils Absolute Auto 3800 /uL (1500-7000); Neutrophils Percent Auto 61.7 % (50-75); Platelet Count 158 X10^3/uL (150-400); Red Blood Cell Count 5.06 X10^6/uL (4.5-5.9); White Blood Cell Count 6.2 X10^3/uL (4.5-11.0)
[2023-01-14 20:03] LABS: TSH w/ Reflex to FT4 0.84 uIU/mL (0.47-4.68)
[2023-01-14 20:06] LABS: Prostate Specific Antigen Scrn 0.432 ng/mL (0.1-4.0)
[2023-01-14 20:30] LABS: Hep C Virus Ab w/Reflex Quant NEGATIVE s/c (NEGATIVE)
== END ==
PROVIDERS: PCP Family Medicine; Visit Provider Family Medicine
DX: E78.2 Mixed hyperlipidemia (principal); Z12.5 Encounter for screening for malignant neoplasm of prostate; J45.20 Mild intermittent asthma, uncomplicated; N52.9 Male erectile dysfunction, unspecified; N40.1 Benign prostatic hyperplasia with lower urinary tract symptoms; Z85.51 Personal history of malignant neoplasm of bladder; N13.8 Other obstructive and reflux uropathy; M54.16 Radiculopathy, lumbar region; I10 Essential (primary) hypertension; D75.1 Secondary polycythemia
CPT/HCPCS: 80053; 80061; 84443; 85025; 86803; G0103

== ENCOUNTER 2023-04-26 06:23 | Day surgery (SDC) | payer MEDICARE, OTHER, SELFPAY ==
[2023-04-26] VITALS (8 sets, daily range): BP systolic 128–152; BP diastolic 70–81; PULSE 63–86; RESP 8–16; TEMP 36.2–36.5; O2SAT 94–98; BMI 26.5
--- NOTE | 2023-04-26 | PATH_ITS ---
[facility] Accession Number: [id number] No. of containers..01 Tissue . 01 Material submitted: . bladder - RIGHT LATERAL BLADDER WALL . 01 Diagnosis: Urinary Bladder, Right Lateral Wall, Biopsies: Inflamed urothelial mucosa with mild atypia, consistent with reactive changes. 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 Negative for dysplasia and malignancy. MRV 04/28/2023 1649 Local . 01 Electronically signed: . Belinda Matos MD, Pathologist NPI- [id number] . 01 Gross description: . RIGHT LATERAL BLADDER WALL: Received in formalin is 2 fragment(s) of wagner, soft tissue measuring 0.6 x 0.2 x 0.1 cm to 0.3 x 0.3 x 0.1 cm submitted entirely in 1 cassette(s) /AAY 04/27/2023 0446 Local . 01 Pathologist provided ICD-10: Z85.51 . 01 CPT . 696415 Specimen Comment: A courtesy copy of this report has been sent to [phone] Performed at: 01 [facility] [address] [place] [address], [place], [place] [id number] MD Sammy Mayers MD Phone: [phone]
[2023-04-26] MEDS: LACTATED RINGERS 1,000 ML 21 ML IV (07:12)
--- NOTE | 2023-04-26 07:50 | SUR.OPER ---
Lithotomy on padded OR bed, head on pillow, arms secured on padded arm boards at <90 degrees abduction. Legs secured in padded yellow fins stirrups.
[2023-04-26] MEDS: CEFAZOLIN 2 GM/100 ML PREMIX 100 ML IV (07:55)
--- NOTE | 2023-04-26 07:56 | PM.PREOP ---
Pre-operative Note Interval Note History & Physical reviewed/Exam performed by Physician: Yes Changes to H&P: No
[2023-04-26] MEDS: WATER FOR INJECTION,STERILE 20 ML, mitoMYcin 20 MG INTRAVESIC (08:33)
--- NOTE | 2023-04-26 08:49 | PM.OP.1 ---
Operative Date/Time/Diagnoses Date of procedure: 04/26/23 Time of procedure: 08:35 Pre-op diagnosis: 1. History of recurrent bladder cancer. Post-op diagnosis: same Procedure & Clinicians Procedure: 1. Cystoscopy/bladder biopsy. 2. Cystoscopy/fulguration. 3. Cystoscopy/installation mitomycin-C (20 mg). Same procedure as scheduled: Yes Indications: 1. History of recurrent bladder cancer. 2. Suspicious area of urothelium at right bladder wall. Surgeon: Katherine Prieto Click Yes if Unassisted: Yes Anesthesia Type: General Operative Notes Findings: 1. Urethra-normal caliber without annular stricture or lesion. 2. External sphincter-coapted with normal overlying urothelium and vascularity. 3. Prostate-4.5-5 cm length with elevated median bar and moderate lateral lobe obstruction. 4. Bladder-1 to 2+ trabeculation. Normal ureteral orifices bilaterally with clear efflux. Index lesion located at right lateral bladder wall and vicinity of a previous resection. Closure Type: not applicable Specimen(s): other (Bladder biopsy/right lateral wall.) Applied: catheter ([address] Barnhart catheter.) Estimated Blood Loss (mL): 1 Blood products transfused: none Procedure in detail: The patient was positioned supine administered general anesthesia. The patient was then positioned in semi lithotomy in the lower abdomen, genitalia, and groin were then prepped and draped in sterile fashion. The resectoscope was then advanced and lower urinary tract under direct visualization with the findings as described above. The [employer] biopsy forceps were then utilized to excise the suspicious urothelial lesion via cold resection x2 samples. The samples were then labeled as to the site of procurement and submitted to pathology for routine gross and microscopic examination. The button electrode was then utilized to cauterize the perimeter and sub urothelium for hemostasis. Hemostasis was excellent. The bladder was then left partially filled and resectoscope was removed. A 16 Sami Barnhart catheter was then inserted, the balloon inflated to 10 cc and the bladder contents drained. A 20 cc solution containing 20 mg mitomycin C was then instilled in the bladder and a catheter plug positioned for anticipated 2 hour postoperative retention per protocol. The patient was then repositioned in supine, was awakened, and then transferred to recovery awake and in stable condition. Complications: none Post-operative Condition: stable Disposition: PACU Plan for aftercare: 1. Retain mitomycin x2 hours per protocol. 2. DC home today with indwelling Barnhart catheter.
--- NOTE | 2023-04-26 12:55 | SUR.PHASEII ---
Pt DC to home with jameson catheter. Declined having leg bag attatched. DC with leg bag. Pt demonstrated how to empty catheter and how to DC cath himself on 04/28/23.
== END 2023-04-26 11:31 | disposition home or self-care (01) ==
PROVIDERS: PCP Family Medicine; Referring Provider Specialist; Visit Provider Specialist
PROC: 3E1K78Z Irrigation of Genitourinary Tract using Irrigating Substance, Via Natural or Artificial Opening (ICD-10-PCS; CPT 51700; principal; 2023-04-26 07:45)
DX: Z85.51 Personal history of malignant neoplasm of bladder (principal); N30.30 Trigonitis without hematuria; N30.80 Other cystitis without hematuria
CPT/HCPCS: 52204; 51720; 82962; J0330; J0690; J1100; J2405; J2704; J3010; J9280

== ENCOUNTER → 2023-08-02 08:50 | Outpatient (CLI) | payer MEDICARE, OTHER, SELFPAY ==
[2023-08-02 15:31] LABS: Add Manual Diff / Slide Review NO; Basophils Absolute Auto 100 /uL (0-100); Basophils Percent Auto 0.8 % (0-2); Eosinophils Absolute Auto 900 /uL (0-450); Eosinophils Percent Auto 13.5 % (2-4); Hematocrit 47.2 % (41-53); Hemoglobin 16.1 g/dL (13.5-17.5); Lymphocytes Absolute Auto 2000 /uL (1100-4500); Lymphocytes Percent Auto 28.9 % (25-40); Mean Corpuscular HGB Conc 34.1 % (30-36); Mean Corpuscular Hemoglobin 31.5 PG (26-34); Mean Corpuscular Volume 92.5 fL (80-100); Monocytes Absolute Auto 600 /uL (0-900); Monocytes Percent Auto 8.4 % (3-14); Neutrophils Absolute Auto 3400 /uL (1500-7000); Neutrophils Percent Auto 48.4 % (50-75); Platelet Count 167 X10^3/uL (150-400); Red Blood Cell Count 5.11 X10^6/uL (4.5-5.9); Red Cell Distribution Width 14.1 % (11.6-14.8)
[2023-08-02 15:52] LABS: BUN Creatinine Ratio 9.7 (6-22); Blood Urea Nitrogen 10 mg/dL (9-20); Calcium 8.9 mg/dL (8.4-10.2); Carbon Dioxide 27 mmol/L (22-32); Chloride 108 mmol/L (98-107); Cholesterol 142 mg/dL (140-199); Estimated Glomerular Filt Rate > 60 mL/min (>60); Glucose 114 mg/dL (80-110); HDL Cholesterol 49 mg/dL (40-60); HEMOLYSIS 24 (0-50); LDL Cholesterol Calculated 68 mg/dL (<100); Sodium 141 mmol/L (137-145); Triglycerides 127 mg/dL (35-150)
[2023-08-02 16:11] LABS: TSH w/ Reflex to FT4 1.52 uIU/mL (0.47-4.68)
[2023-08-02 16:15] LABS: Vitamin D 25 Hydroxy (D3) 39.1 ng/mL (30.0-100.0)
[2023-08-02 16:21] LABS: Prostate Specific Antigen Scrn 0.361 ng/mL (0.1-4.0)
[2023-08-02 16:56] LABS: Hep C Virus Ab w/Reflex Quant NEGATIVE s/c (NEGATIVE)
== END ==
PROVIDERS: PCP Family Medicine; Visit Provider Family Medicine
DX: N52.9 Male erectile dysfunction, unspecified (principal); I10 Essential (primary) hypertension; E55.9 Vitamin D deficiency, unspecified; Z12.5 Encounter for screening for malignant neoplasm of prostate; D75.1 Secondary polycythemia; N13.8 Other obstructive and reflux uropathy; E78.2 Mixed hyperlipidemia; N40.1 Benign prostatic hyperplasia with lower urinary tract symptoms
CPT/HCPCS: 80048; 80061; 82306; 84443; 85025; 86803; G0103

== ENCOUNTER → 2023-12-24 11:35 | Outpatient (CLI) | payer MEDICARE, OTHER, SELFPAY ==
--- NOTE | 2023-12-24 11:36 | DI.MRI.S_ITS ---
PROCEDURE: MR LUMBAR SPINE WO CON INDICATIONS: spinal stenosis TECHNIQUE: Noncontrast sagittal T1 spin echo and T2 fast echo, sagittal STIR, and T2 fast spin echo through the lumbar spine. In cases with scoliosis, additional coronal T2 fast spin echo may be performed. COMPARISON: [facility], MR, MR LUMBAR SPINE WO CON, 12/16/2018, 12:01. FINDINGS: Image quality: This examination is limited by involuntary motion artifact. Alignment and Curvature: There is minimal retrolisthesis seen at L2-L3 and L3-L4. There is mild retrolisthesis at the L5-S1 level. Bone Marrow: Marrow is of normal overall signal. No acute vertebral body compression fractures. Spinal Cord: Conus medullaris terminates at the L1 level. Visualized cord demonstrates normal signal and size. Paraspinous Soft Tissues: No paravertebral masses. T12-L1: Normal appearance. L1-L2: No significant abnormality is seen. L2-L3: The disc height is well-preserved. Loss of disc signal is seen at this level. Moderate disc bulge is seen, with a superimposed central/right disc extrusion, with inferior migration of the disc material, as on series 2, image 8. The extruded disc material measures 16 mm craniocaudal. Moderate facet joint hypertrophy is seen. Mild to moderate bilateral neural foraminal narrowing is seen. At least moderate central canal narrowing is seen at this level. The disc extrusion is new compared to the prior. L3-L4: The disc height is well-preserved. Loss of disc signal is seen at this level. Moderate generalized disc bulge is seen. Mild to moderate facet hypertrophy can be seen. Minimal neural foraminal narrowing can be seen. Mild central canal narrowing is seen. When comparison is made with the prior images, these findings are similar. L4-L5: The disc height is well-preserved. Loss of disc signal is seen at this level. Moderate generalized disc bulge is seen. There is a superimposed central disc protrusion. At least moderate facet joint hypertrophy is seen. Moderate bilateral neural foraminal narrowing is seen. Moderate to severe central canal narrowing is seen, as on series 6 image 18. These degenerative changes are worse than in 2019. L5-S1: Postoperative changes are seen, with removal of portions of the posterior elements. There is an apparent disc spacer seen at this level. Mild generalized disc bulge is seen. At least moderate facet hypertrophy can be seen. There is moderate left-sided neural foraminal narrowing, with a degree of compression upon the exiting left L5 nerve root. No significant right-sided neural foraminal narrowing is seen. No significant central canal narrowing is seen. There is slight progression of the left neural foraminal narrowing compared to 2019. 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 IMPRESSION: There is a new disc extrusion seen at L2-L3, within the central/right location. Multiple levels of degenerative change are seen, which are overall progressed compared to 2019. Dictated by: Jesse Hawkins M.D. on 12/24/2023 at 12:53 Approved by: Jesse Hawkins M.D. on 12/24/2023 at 12:58
== END ==
PROVIDERS: PCP Family Medicine; Referring Provider Family Medicine; Visit Provider Family Medicine
DX: M51.16 Intervertebral disc disorders with radiculopathy, lumbar region (principal); M47.26 Other spondylosis with radiculopathy, lumbar region; M47.27 Other spondylosis with radiculopathy, lumbosacral region; M48.00 Spinal stenosis, site unspecified
CPT/HCPCS: 72148

== ENCOUNTER → 2024-01-25 11:38 | Outpatient (CLI) | payer MEDICARE, OTHER, SELFPAY ==
[2024-01-25 19:12] LABS: Estimated Glomerular Filt Rate > 60 mL/min (>60)
== END ==
PROVIDERS: PCP Family Medicine; Visit Provider Urology
DX: C67.9 Malignant neoplasm of bladder, unspecified (principal)
CPT/HCPCS: 82565

== ENCOUNTER → 2024-02-02 11:08 | Outpatient (CLI) | payer MEDICARE, OTHER, SELFPAY ==
--- NOTE | 2024-02-02 11:09 | DI.MRI.S_ITS ---
PROCEDURE: MR PELIS WO/W CON INDICATIONS: 83 y/o M w/ bladder cancer, please eval upper tracts. TECHNIQUE: MR images was obtained of the pelvis with and without contrast. COMPARISON: None. FINDINGS: Image quality: Diagnostic Lower abdomen: Separately dictated Bladder: Mild trabeculations and irregularity, no definite focal mass Reproductive organs: Heterogeneity of the prostate is favored represent BPH nodules. Median lobe hypertrophy of the prostate impinges at the bladder neck. Rectum: Unremarkable rectum. Colonic diverticula are partially seen Vessels and lymph nodes: No pathologic lymph nodes by size criteria. No aneurysmal vessel identified. Pelvic wall: Unremarkable Bones: There are degenerative changes, no suspicious osseous enhancement. Retrolisthesis of L5 on S1 partially seen. IMPRESSION: No definite metastatic disease identified in the pelvis. No lymphadenopathy by size criteria. Consider cystoscopy for further surveillance of reported bladder cancer. Heterogeneity of the prostate favored to represent BPH nodules. Consider dedicated prostate protocol if there is clinical concern such as high PSA. Median lobe hypertrophy of the prostate impinges at the bladder neck. Dictated by: Abel Stevens M.D. on 02/03/2024 at 16:20 Approved by: Abel Stevens M.D. on 02/03/2024 at 16:23
== END ==
PROVIDERS: PCP Family Medicine; Referring Provider Urology; Visit Provider Urology
DX: C67.9 Malignant neoplasm of bladder, unspecified (principal); N32.89 Other specified disorders of bladder; K57.90 Diverticulosis of intestine, part unspecified, without perforation or abscess without bleeding
CPT/HCPCS: 72197; A9579

== ENCOUNTER → 2024-02-03 14:57 | Outpatient (CLI) | payer MEDICARE, OTHER, SELFPAY ==
--- NOTE | 2024-02-03 14:58 | DI.MRI.S_ITS ---
PROCEDURE: MR ABDOMEN WO/W CON INDICATIONS: Previous bladder cancer TECHNIQUE: Coronal HASTE through abdomen and pelvis; axial 2D FLASH in- and [id number] (with and without fat saturation), and breath-hold T2 FSE from the hepatic dome to the bottom of the kidneys. Coronal HASTE MR urogram of kidneys and bladder. Dynamic coronal VIBE during IV gadolinium administration; postgadolinium axial VIBE or 2D FLASH with fat saturation from the hepatic dome through the kidneys. COMPARISON: None. FINDINGS: Image quality: Diagnostic Lower chest: No basal effusions Liver: Unremarkable Gallbladder and biliary system: Unremarkable, nondilated Pancreas: No ductal dilation Spleen: Nonenlarged Adrenals: No discrete nodules Kidneys: No hydronephrosis. There is an indeterminate 1.8 cm lesion with mild T2 hypointensity and questionable rim enhancement subtraction images. This is best seen on diffusion-weighted images (), and opposed phase chemical shift imaging, 07/06. Vessels and lymph nodes: The main portal vein is patent. No abdominal aortic aneurysm or pathologic lymph nodes by size criteria. Bowel and peritoneum: No bowel obstruction. No abdominal ascites. Body wall: Unremarkable Pelvis: Separately dictated Bones: No acute or suspicious osseous finding. IMPRESSION: Indeterminate 1.8 cm lesion with mild T2 hypointensity and questionable rim enhancement in the left upper pole. This is best seen on chemical shift imaging and diffusion images (). Differential includes a lipid poor angiomyolipoma, papillary subtype RCC with poor enhancement, versus complicated hemorrhagic cyst. A follow-up renal protocol MRI is suggested in 3-6 months to reassess. Pelvic findings are separately dictated. No definite metastatic disease in the abdomen. Dictated by: Abel Stevens M.D. on 02/03/2024 at 16:10 Approved by: Abel Stevens M.D. on 02/03/2024 at 16:19
== END ==
LOC: MRI 14:58
PROVIDERS: PCP Family Medicine; Referring Provider Urology; Visit Provider Urology
DX: C67.9 Malignant neoplasm of bladder, unspecified (principal); N28.9 Disorder of kidney and ureter, unspecified
CPT/HCPCS: 74183; A9579

== ENCOUNTER → 2024-07-17 12:44 | Outpatient (CLI) | payer MEDICARE, OTHER, SELFPAY ==
--- NOTE | 2024-07-17 12:47 | DI.MRI.S_ITS ---
PROCEDURE: MR ABDOMEN RENAL PROTOCOL INDICATIONS: 83 y/o M w/ indeterminate 1.8cm left upper pole renal mass TECHNIQUE: Coronal HASTE through abdomen and pelvis; axial 2D FLASH in- and [id number]-heldr (with and without fat saturation), and breath-hold T2 FSE from the hepatic dome to the bottom of the kidneys. Coronal HASTE MR urogram of kidneys and bladder. Dynamic coronal VIBE during IV gadolinium administration; postgadolinium axial VIBE or 2D FLASH with fat saturation from the hepatic dome through the kidneys. COMPARISON: [facility], MR, MR ABDOMEN WO/W CON, 02/03/2024, 15:17. FINDINGS: Image quality: Diagnostic Lower chest: No pleural effusions. Liver: Possible mild steatosis. No suspicious focal lesion Gallbladder and biliary system: Unremarkable, nondilated Pancreas: No ductal dilation Spleen: Nonenlarged Adrenals: No discrete nodules Kidneys: There is a diffusion restricting region in the left upper pole of the kidney, with cortical indentation and mild peripheral enhancement measuring about 1.7 cm. This is similar to prior. See reference image , . No hydronephrosis. Small parapelvic cysts. Vessels and lymph nodes: No abdominal aortic aneurysm. No lymphadenopathy by size criteria. Main portal vein appears patent Bowel and peritoneum: No small bowel obstruction. Colonic diverticula are present. No pathologic ascites. Body wall: Unremarkable Bones: No aggressive appearing osseous finding IMPRESSION: Stable left upper pole subtle renal lesion, best seen on diffusion-weighted images (series 15), compared to prior imaging. Consider continued follow-up to establish long-term stability, especially in the setting of prior malignancy elsewhere. No hydronephrosis. No aggressive renal lesion identified with nodular enhancement. Other findings above. Dictated by: Abel Stevens M.D. on 07/17/2024 at 14:57 Approved by: Abel Stevens M.D. on 07/17/2024 at 15:11
== END ==
LOC: MRI 12:46
PROVIDERS: PCP Family Medicine; Referring Provider Urology; Visit Provider Urology
DX: N28.89 Other specified disorders of kidney and ureter (principal); K57.90 Diverticulosis of intestine, part unspecified, without perforation or abscess without bleeding
CPT/HCPCS: 74183; A9579

== ENCOUNTER → 2024-12-07 09:51 | Outpatient (CLI) | payer MEDICARE, OTHER, SELFPAY ==
[2024-12-07 18:56] LABS: Add Manual Diff / Slide Review NO; Hematocrit 46.5 % (41-53); Hemoglobin 15.6 g/dL (13.5-17.5); Lymphocytes Absolute Auto 1800 /uL (1100-4500); Mean Corpuscular HGB Conc 33.6 % (30-36); Mean Corpuscular Hemoglobin 31.1 PG (26-34); Mean Corpuscular Volume 92.5 fL (80-100); Platelet Count 168 X10^3/uL (150-400)
[2024-12-07 19:11] LABS: Blood Urea Nitrogen 13 mg/dL (9-20); Calcium 9.1 mg/dL (8.4-10.2); Carbon Dioxide 28 mmol/L (22-32); Chloride 106 mmol/L (98-107); Cholesterol 132 mg/dL (140-199); Estimated Glomerular Filt Rate > 60 mL/min (>60); Glucose 110 mg/dL (70-99); HDL Cholesterol 45 mg/dL (40-60); HEMOLYSIS 17 (0-50); Potassium 4.6 mmol/L (3.4-5.1); Sodium 141 mmol/L (137-145); Triglycerides 133 mg/dL (35-150)
[2024-12-07 19:17] LABS: Hemoglobin A1C% w Est Avg Glu 5.8 % (4.0-6.0)
[2024-12-07 19:30] LABS: Vitamin D 25 Hydroxy (D3) 18.7 ng/mL (30.0-100.0)
[2024-12-07 19:39] LABS: Prostate Specific Antigen 0.345 ng/mL (0.10-4.00)
== END ==
PROVIDERS: PCP Family Medicine; Visit Provider Family Medicine
DX: F32.0 Major depressive disorder, single episode, mild (principal); E78.2 Mixed hyperlipidemia; N40.1 Benign prostatic hyperplasia with lower urinary tract symptoms; E55.9 Vitamin D deficiency, unspecified; R73.9 Hyperglycemia, unspecified; N13.8 Other obstructive and reflux uropathy; I10 Essential (primary) hypertension; D75.1 Secondary polycythemia
CPT/HCPCS: 80048; 80061; 82306; 83036; 84153; 85025

== ENCOUNTER → 2024-12-13 11:29 | Outpatient (CLI) | payer MEDICARE, OTHER, SELFPAY ==
--- NOTE | 2024-12-13 11:32 | DI.MRI.S_ITS ---
PROCEDURE: MR ABDOMEN RENAL PROTOCOL INDICATIONS: 83 y/o M w/ 1.8cm left upper pole renal lesion, please eval TECHNIQUE: Coronal HASTE through abdomen and pelvis; axial 2D FLASH in- and [id number] (with and without fat saturation), and breath-hold T2 FSE from the hepatic dome to the bottom of the kidneys. Coronal HASTE MR urogram of kidneys and bladder. Dynamic coronal VIBE during IV gadolinium administration; postgadolinium axial VIBE or 2D FLASH with fat saturation from the hepatic dome through the kidneys. COMPARISON: [facility], MR, MR ABDOMEN WO/W CON, 02/03/2024, 15:17. [facility], MR, MR ABDOMEN RENAL PROTOCOL, 07/17/2024, 12:55. FINDINGS: Image quality: Diagnostic. Kidneys and Ureters: No hydronephrosis. No solid mass. No complex renal cystic lesion which requires follow up. Again noted at the superior posterolateral margin of the left kidney is a thin band of cortical irregularity without mass best visualized on the coronal postcontrast imaging series 9, image 61, /, . An exophytic enhancing nodule in this area is not seen. This area can be visualized as elevated diffusion signal with less anatomic detail on the 3 diffusion series centered on . This pattern is unchanged from prior similar MR studies 02/03/24 and 07/17/24. OTHER: Lung bases: Unremarkable. Liver: No solid mass. Gallbladder: No gallstones or wall thickening. Biliary ducts: No biliary dilation. Pancreas: No ductal dilation. Spleen: Size is within normal limits. Adrenal Glands: No adrenal nodules. Stomach and Bowel: Normal colonic caliber, without significant wall thickening. Peritoneum: No abnormal intraperitoneal fluid. No free air. Ventral Wall: No hernia. Abdominal Nodes: No retroperitoneal or mesenteric adenopathy by size criteria. Vessels: Aorta and inferior vena cava are normal in size. Bones: No aggressive osseous abnormality. IMPRESSION: Absence of belt changer time, absence of nodular enhancement or mass effect in an area of minimal cortical irregularity upper posterolateral renal cortical border. In my opinion this is a benign abnormality, perhaps from prior renal cortical scarring, and does not show malignant-appearing MR characteristics. If follow-up imaging is considered clinically necessary I would recommend renal protocol CT without and with contrast no sooner than 1 year from now. Dictated by: Albaro Russell M.D. on 12/14/2024 at 12:20 Approved by: Albaro Russell M.D. on 12/14/2024 at 12:33
== END ==
LOC: MRI 11:31
PROVIDERS: PCP Family Medicine; Referring Provider Urology; Visit Provider Urology
DX: N28.89 Other specified disorders of kidney and ureter (principal)
CPT/HCPCS: 74183; A9579